=== PATIENT | male | born 1980 | race Hispanic/Latino ===

== ENCOUNTER → 2018-03-04 | Outpatient (CLI) | payer BC ==
--- NOTE | 2018-03-04 10:30 | Diagnostic Imaging Report ---
PROCEDURE:ABDOMINAL ULTRASOUND COMPARISON:None. INDICATIONS:ABNORMAL LEVELS OF OTHER SERUM ENZYMES TECHNIQUE: [place]-scale and color sonographic images were obtained of the abdomen in transverse and sagittal planes. FINDINGS: Exam is limited secondary to the patient's body habitus and bowel gas. Liver: Measures up to 15.1 cm in length. The liver is diffusely hyperechoic. No masses. Main portal vein: Flow is demonstrated on Doppler images, hepatopetal flow Gallbladder: No evidence of gallbladder distention, wall thickening, stones, or sludge. Common Bile Duct: Measures 3 mm Sonographic Maddox's sign: Negative Right kidney: Measures up to 11.2 cm Left kidney: Measures up to 11.8 cm. Spleen: No splenomegaly. The spleen measures up to 7.5 cm. Pancreas: The visualized portions are unremarkable. Aorta: No demonstrated aneurysm Ascites: None CONCLUSION: Fatty liver. Liver size measurement is at the upper limits of normal. No sonographic evidence of cholecystitis. Dictated by: MURRAY MORATAYA M.D. on 03/04/2018 at 10:34 Electronically approved by: MURRAY MORATAYA M.D. on 03/04/2018 at 10:34
== END ==
LOC: US 07:48 → EDBD 08:00
PROVIDERS: ATTEND Internal Medicine
DX: R74.8 Abnormal levels of other serum enzymes (principal); K76.0 Fatty (change of) liver, not elsewhere classified
CPT/HCPCS: 76700